=== PATIENT | female | born 1930 | race Caucasian/White ===

== ENCOUNTER 2019-07-09 09:18 | Inpatient (IN) ==
--- NOTE | 2019-07-09 10:16 | EKG Report ---
Test Performed on : 07/09/2019 10:16:33 AM Test Reason : SOB Blood Pressure : / mmHG Vent. Rate : 051 BPM Atrial Rate : 051 BPM P-R Int : 142 ms QRS Dur : 072 ms QT Int : 438 ms P-R-T Axes : 003 014 050 degrees QTc Int : 403 ms Sinus bradycardia. with marked sinus arrhythmia. Low voltage QRS Nonspecific T wave abnormality Abnormal ECG No previous ECGs available Unconfirmed Result
[2019-07-09 10:25] LABS: BASO# 0.02 X1000 (0.0-0.2); BASO% 0.1 % (0.0-0.8); HEMATOCRIT 39.9 % (37.0-47.0); IMM GRAN# 0.11 X1000 (0.0-0.04); IMM GRAN% 0.8 % (0.0-0.5); LYMPH% 7.4 % (20.5-51.1); MCH 31.1 PG (27-31); MCHC 32.6 g/dL (33-37); MCV 95.5 FL (81-99); MONO# 1.37 X1000 (0.11-0.59); MONO% 10.2 % (1.7-9.3); MPV 10.4 FL (7.4-10.4); NEUT# 10.96 X1000 (1.4-6.5); NEUT% 81.5 % (42.2-75.2); PLT 245 X1000 (130-400); RBC 4.18 XMIL (4.2-5.4); RDW 13.1 % (11.5-14.5); WBC 13.46 X1000 (4.8-10.8)
[2019-07-09 10:44] LABS: ALB/GLOB RATIO 1.2; ALBUMIN 3.7 g/dL (3.5-5.0); CALCIUM 9.9 mg/dL (8.8-10.2); CREATININE 1.3 mg/dL (0.5-0.9); POTASSIUM 4.3 mmol/L (3.5-5.1); TOTAL BILIRUBIN 0.31 mg/dL (0.20-1.00); TOTAL PROTEIN 6.9 g/dL (6.3-8.3)
--- NOTE | 2019-07-09 11:19 | Diag Imaging Result Doc PS360 ---
EXAM: XRAY PELVIS W/HIP 2-3VW LT 07/09/2019 HISTORY: fall TECHNIQUE: AP pelvis and left hip three views COMMENT: There is generalized osteopenia. There is an apparent fracture of the inferior pubic ramus on the left of uncertain age. There are no previous studies available for comparison. The hip joint spaces are well-maintained. There are atherosclerotic calcifications in the common femoral arteries. IMPRESSION: Fracture of the left inferior pubic ramus of uncertain age. Electronically signed by Baudilio Sarabia 07/09/2019 11:17 AM
--- NOTE | 2019-07-09 11:20 | Diag Imaging Result Doc PS360 ---
EXAM: FEMUR 1 VIEW LEFT 07/09/2019 HISTORY: fall TECHNIQUE: Left femur one view COMMENT: There is no evidence of fracture or dislocation periosteal reaction or erosion. There are calcifications in the superficial femoral and popliteal arteries. IMPRESSION: No acute bony abnormality. Electronically signed by Baudilio Sarabia 07/09/2019 11:17 AM
--- NOTE | 2019-07-09 11:21 | Diag Imaging Result Doc PS360 ---
CHEST-2 VIEWS - 07/09/2019 INDICATION: SOB COMPARISON: 05/05/2015 FINDINGS: There are no infiltrates in the lungs. Heart size is normal. There is a severe compression deformity in the lower thoracic spine which was not present in 2014. This is at about T10. There is 80% loss of height. IMPRESSION: Age-indeterminate thoracic spine compression fracture. Electronically signed by Graham Thornton 07/09/2019 11:19 AM
--- NOTE | 2019-07-09 12:19 | PROVIDER DOCUMENTATION ---
This chart was entered by Silverio Luna Scribe, acting as scribe for Jalil Bell CRNP. HPI-Musculoskeletal Pain/Inj - GENERAL Chief Complaint: Hip Pain Stated Complaint: FALL/LEFT HIP PAIN Time Seen by Provider: 07/09/19 09:45 Source: patient, family, EMS - HX OF PRESENT ILLNESS-MUSKULOSKELTAL Nature of Presenting Problem: 89 yof presents to the ed v/a ems after a fall [employer]. pt was walking to the mail box, fell and was ambulatory w/ help from fire dep. to walk back inside home. ems states pt then started to c/o Lt hip pain. pt states SOB but " recently had cold and treating w/ medications." 02 sats 89-90 % on room air ,daughter states pt " suppose to be on oxyg at home but doesn't use it." Quality of Pain: reports: aching Severity in ED: mild Onset/Duration: just prior to arrival Timing: still present Modifying Factors: improves with: nothing Any recent injury?: No Locality of Occurance: Home Similar Symptoms Previously?: No Recently seen or treated by another doctor?: No - FALL INJURY Location of Pain/Injury: reports: pelvis (Lt hip) Pain Radiation: reports: no radiation Reason for Fall: reports: tripped Symptoms prior to fall:: reports: none Loss of Consciousness: no loss of consciousness Injury Associated Symptoms: reports: shortness of breath. denies: back/neck pain, chest pain, nausea, sensory/motor loss, unable to bear weight, vomiting - HIP/PELVIS PAIN/INJURY Hip Pain Location: reports: hip (L) Pain Radiation: reports: no radiation Context / Method of Injury: reports: fall Associated Symptoms: reports: denies symptoms Review of Systems - Adult - REVIEW OF SYSTEMS - ADULT Constitutional: denies: chills, fever Eyes: reports: no symptoms reported Ears, Nose, Mouth & Throat: reports: no symptoms reported Cardiovascular: reports: no symptoms reported Respiratory: reports: see HPI, shortness of breath. denies: cough, wheezing Gastrointestinal: denies: abdominal pain, constipation, diarrhea, nausea, vomiting Genitourinary: reports: no symptoms reported Musculoskeletal: reports: see HPI. denies: back pain, neck pain Integumentary: reports: no symptoms reported Neurological: reports: no symptoms reported Psychiatric: reports: no symptoms reported Endocrine: reports: no symptoms reported Hematologic/Lymphatic: reports: no symptoms reported Allergic/Immunologic: reports: no symptoms reported All Other Systems: Reviewed and Negative Past History - Adult - PAST MEDICAL HISTORY-ADULT Review of Records: reports: Old Records Reviewed, Nursing Assessment Review, Medications Reviewed, Social history reviewed & non-contributory. Major Childhood Illnesses: reports: denies history Cardiovascular: reports: HTN, hyperlipidemia Respiratory: reports: denies history Gastrointestinal: reports: denies history Obstetrical/Gynecological: reports: denies history Genitourinary: reports: denies history Musculoskeletal: reports: denies history Neurological: reports: other (brain aneurysm) Psychiatric: reports: denies history Endocrine/Immune: reports: denies history Other Conditions: reports: denies history - PRIOR SURGERIES/PROCEDURES Surgical/Procedure History: reports: hysterectomy, BTL, tonsillectomy - IMMUNIZATION STATUS Childhood Immunizations: See Nurse Assessment Flu Vaccine: See Nurse Assessment - FAMILY HISTORY Family History: reviewed, not pertinent - SOCIAL HISTORY Smoking: quit greater than 1 year, cigarettes Substance Use: denies Physical Exam-Injury Related - Physical Exam-Injury Related Initial Vital Signs Reviewed: Yes General Appearance: appears well, alert, mild distress Respiratory: chest non-tender, lungs clear, normal breath sounds Cardiovascular: normal peripheral pulses, regular rate, rhythm Extremity: normal range of motion, normal inspection Psych/Mental Status: normal mood/affect, normal thought content, normal thought process, oriented x 3 - Glascow Coma Score Best Eye Response (Pedro): (4) open spontaneously Best Verbal Response (Pedro): (5) oriented Best Motor Response (Pedro): (6) obeys commands Ronda Total: 15 Progress - PLAN OF CARE/RESULTS Progress/Plan/Lab Results: Vital Signs - 8 hr 07/09/19 09:25 07/09/19 09:30 07/09/19 09:37 Temperature 98.1 F Pulse Rate 66 58 L 68 Respiratory Rate 18 20 20 Blood Pressure 112/61 100/60 O2 Sat by Pulse Oximetry 94 L 91 L 92 L 07/09/19 09:39 07/09/19 09:45 07/09/19 09:48 Temperature Pulse Rate 61 58 L 60 Respiratory Rate 27 H 22 21 Blood Pressure 112/61 100/60 O2 Sat by Pulse Oximetry 90 L 90 L 91 L 07/09/19 10:00 07/09/19 10:02 07/09/19 10:15 Temperature Pulse Rate 76 55 L 57 L Respiratory Rate 27 H 22 28 H Blood Pressure 103/61 O2 Sat by Pulse Oximetry 92 L 94 L 96 07/09/19 10:17 Temperature Pulse Rate 60 Respiratory Rate 15 Blood Pressure 114/59 O2 Sat by Pulse Oximetry 95 Laboratory Results - last 24 hr 07/09/19 07/09/19 10:06 10:06 WBC 13.46 H RBC 4.18 L Hgb 13.0 Hct 39.9 MCV 95.5 MCH 31.1 H MCHC 32.6 L RDW Std Deviation 13.1 Plt Count 245 MPV 10.4 Immature Gran % (Auto) 0.8 H Neut % (Auto) 81.5 H Lymph % (Auto) 7.4 L [place] % (Auto) 10.2 H Eos % (Auto) 0.0 Baso % (Auto) 0.1 Immature Gran # (Auto) 0.11 H Neut # (Auto) 10.96 H Lymph # (Auto) 1.00 L [place] # (Auto) 1.37 H Eos # (Auto) 0.00 Baso # (Auto) 0.02 Sodium 133 L Potassium 4.3 Chloride 96 L Carbon Dioxide 25 Anion Gap 12 BUN 32 H Creatinine 1.3 H Estimated GFR/1.73 m2 39 BUN/Creatinine Ratio 25 Glucose 94 Calculated Osmolality 273 Calcium 9.9 Total Bilirubin 0.31 AST 13 ALT 11 Alkaline Phosphatase 73 Total Protein 6.9 Albumin 3.7 Globulin 3.2 Albumin/Globulin Ratio 1.2 Orders Category Date Time Status Nursing- Obtain EKG ONCE Care 07/09/19 09:58 Active CHEST-2 VIEWS [RAD] Stat Exams 07/09/19 09:57 Completed FEMUR 1 VIEW LEFT [RAD] Stat Exams 07/09/19 09:57 Completed XRAY PELVIS W/HIP 2-3VW LT [RAD] Stat Exams 07/09/19 09:57 Completed CBC WITH ELECTRONIC DIFF [HEME] Stat Lab 07/09/19 10:06 Completed COMPREHENSIVE METABOLIC PANEL [CHEM] Stat Lab 07/09/19 10:06 Completed UA NIMS W/REFLEX CULT [URINALYSIS] Stat Lab 07/09/19 12:10 Uncollected EKG [EKG] Stat Ther 07/09/19 09:58 Draft Result Diagrams: 07/09/19 10:06 07/09/19 10:06 - EKG 1 Time of EKG reading by physician:: 10:16 EKG Read and Signed by:: Dom Koenig EKG Interpretation (*Must complete 3 of following elements*): Abnormal Rate: 51 Rhythm: sinus bradycardia with marked sinus arrhythmia [place]: normal QRS: other (low voltage QRS) MT Interval: normal ST Wave: normal Comments: nonspecific T wave abnormality - XRAY 1 XRAY Study: Chest Impression: Abnormal (FINDINGS: There are no infiltrates in the lungs. Heart size is normal. There is a severe compression deformity in the lower thoracic spine which was not present in 2015. This is at about T10. There is 80% loss of height. IMPRESSION: Age-indeterminate thoracic spine compression fracture.), See EMR Report 2 XRAY Study: Pelvis, Hip Impression: Abnormal (COMMENT: There is generalized osteopenia. There is an apparent fracture of the inferior pubic ramus on the left of uncertain age. There are no previous studies available for comparison. The hip joint spaces are well-maintained. There are atherosclerotic calcifications in the common femoral arteries. IMPRESSION: Fracture of the left inferior pubic ramus of uncertain age.), See EMR Report 3 XRAY Study: Femur Impression: Normal (COMMENT: There is no evidence of fracture or dislocation periosteal reaction or erosion. There are calcifications in the superficial femoral and popliteal arteries. IMPRESSION: No acute bony abnormality.), See EMR Report - CONSULTS/PCP/HOSPITALIST Notification #1 *Consult/PCP/Hospitalist*: CAROLYNE Burnham for Dr Oliva Time Discussed: 12:14 Reason/Comments: Pubic Ramus Fracture, T10 fracture, ARF, COPD exacerbation Consult Disposition: Admit #2 Consult: Dr White Time Discussed: 12:16 Reason/Comments: ramus fracture, compression fracture Departure - Departure Date of Disposition Decision: 07/09/19 Time of Disposition Decision: 12:17 DIAGNOSIS: COPD exacerbation Pubic ramus fracture Qualifiers: Encounter type: initial encounter Compression fracture of T10 vertebra Qualifiers: Encounter type: initial encounter Qualified Code(s): S22.070A - Wedge compression fracture of T9-T10 vertebra, initial encounter for closed fracture Fall Qualifiers: Encounter type: initial encounter Qualified Code(s): W19.XXXA - Unspecified f all, initial encounter Acute renal failure (ARF) Qualifiers: Acute renal failure type: unspecified Qualified Code(s): N17.9 - Acute kidney failure, unspecified Disposition: HOME 01 Certified Medical Emergency: Emergent Condition: Critical Additional Instructions: ED Follow Up Instructions: You have been treated by a care provider in the Emergency Department. These instructions are being provided to you so you can have an understanding of how to care for yourself upon discharge. Upon discharge from the Emergency Department, you are responsible for making arrangements for follow-up care by a physician of your choice. Take all prescribed medications as directed. Return to the Emergency Department immediately for any new or worsening symptoms. You may call the Physician Referral phone number at [phone] to obtain a list of Physicians who are taking new patients. Referrals and Follow-Ups: Radha Matthew MD [Primary Care Provider] - - Critical Care Note This patient required my direct & personal management of CC.: No Attestation - Physician/ LANEY Attestation Patient care was provided by Advanced Practice Provider:: Yes Advanced Practice Provider:: Jalil Bell Advanced Practice Provider documentation review:: The Mid-level provider documentation, treatment plan and medical decision making was reviewed by the physician who agrees with all treatment and medical decision making by the MLP. The physician spent face to face time with patient:: No Advanced Practice Provider documentation review:: Supervising physician onsite and consulted in the evaluation and care of this patient. The physician did not have a face to face encounter with the patient. This chart was documented by the indicated scribe, (Silverio Luna Scribe) and accurately reflects the services I performed and decisions made by , Jalil Bell CRNP, as attested by the provider's signature.
[2019-07-09] MEDS ORDERED: MICRO-K PO PRN (14:14)
[2019-07-09] MEDS ORDERED: ZOFRAN IV PRN (14:14)
[2019-07-09] MEDS ORDERED: TYLENOL PO PRN (14:14)
[2019-07-09] MEDS ORDERED: LASIX PO PRN (14:14)
[2019-07-09] MEDS: MAG-OX PO SCH ×2 (15:58→17:16)
--- NOTE | 2019-07-09 16:28 | HISTORY AND PHYSICAL ---
PRIMARY CARE PHYSICIAN: Dr. Matthew. CHIEF COMPLAINT: Of a fall in her bedroom this morning while putting on her robe to go out to the mailbox. HISTORY OF PRESENTING ILLNESS: This is an 89-year-old female who presents to [facility] via EMS after she sustained a fall in her bedroom this morning while putting her robe bone in preparation to go outside to her mailbox. States she started having some left hip pain so she was brought to the emergency room. Her workup showed a left hip pelvis x-ray with a fracture of the left inferior pubic ramus of uncertain age. We did a left femur 1 view that showed no acute bony abnormality. Chest x-ray showed a thoracic spine compression fracture at T10 of a age indeterminate, but the patient states she has had that for several years and was aware. Her laboratory data showed a white blood cell count of 13.46. Her creatinine is 1.3, but she states she also has some underlying chronic kidney disease. We do not have any previous labs to compare to, but it sounds as if this is probably around her baseline and so she will be admitted with orthopedic consultation for further evaluation and treatment. PAST MEDICAL HISTORY: Hypertension, hyperlipidemia, brain aneurysm, and chronic kidney disease. PAST SURGICAL HISTORY: Of a hysterectomy, bilateral tubal ligation and a tonsillectomy. FAMILY HISTORY: Reviewed and noncontributory. SOCIAL HISTORY: She currently lives alone. Denies any tobacco, alcohol or illicit drug use. ALLERGIES: To meperidine. HOME MEDICATIONS: She takes carvedilol 25 mg p.o. b.i.d., doxycycline 100 mg p.o. b.i.d., Lasix 20 mg p.o. p.r.n., losartan/hydrochlorothiazide 100/25 1 p.o. daily, lovastatin 40 mg p.o. at bedtime, magnesium oxide 200 mg p.o. t.i.d., potassium 10 mEq p.o. p.r.n., prednisone 20 mg p.o. daily, spironolactone 25 mg p.o. daily an Stiolto respite inhaler 2 puff inhalation daily. LABORATORY DATA: Showed a white blood cell count of 13.46, hemoglobin 13, hematocrit 39.9, platelets 245,000. Sodium 133, potassium 4.3, chloride 96, CO2 25, BUN of 32, creatinine 1.3, glucose 94. A chest x-ray that showed an age indeterminate thoracic spine compression fracture at about the T-10 with 80% loss of height that has been present for several years according to the patient. Her left femur x-ray showed no acute bony abnormality. Her left hip and pelvic x-ray showed a fracture of the left inferior pubic ramus of uncertain age. EKG showed sinus bradycardia with a marked sinus arrhythmia at 51. REVIEW OF SYSTEMS: She denied any fever, chills, blurred vision, dizziness, chest pain, coughing, shortness of breath. She denied any abdominal pain, constipation, diarrhea, burning or hurting with urination. She does have pain in her left hip area with movement. PHYSICAL EXAMINATION: On arrival she had a temperature of 98.1 degrees, pulse 66, respirations 18, blood pressure 112/61, saturating 94% on room air. GENERAL: This is an 89-year-old female who is sitting up in the bed. Answers questions appropriately. HEENT: Normocephalic, atraumatic. Normal ENT inspection. Oropharynx and nares are clear. EYES: Pupils are equal, round, reactive to light and accommodation. Extraocular movements are intact. NECK: Normal inspection, normal range of motion. LUNGS: Clear to auscultation bilaterally with equal lung expansion and chest wall movement. HEART: With regular rate and rhythm. No murmurs, rubs, or gallops. ABDOMEN: Soft, nontender, nondistended. Bowel sounds are present x4 quadrants. MUSCULOSKELETAL: She had 5/5 strength to bilateral upper extremities and right lower extremities, unable to assess the left at this time. NEUROLOGICAL: Cranial nerves 2-12 appear grossly intact. ASSESSMENT: 1. Fall. 2. Left inferior pubic ramus fracture. 3. Mild leukocytosis but may be secondary to chronic steroid use. PLAN: She will be admitted, placed on telemetry, O2 per protocol. We will consult physical therapy, consult Orthopedics. Continue home medications as previously identified. We will give her morphine 2 mg IV q.3 hours p.r.n., Zofran 4 mg IV q.4 hours p.r.n. Further orders will be after seen by attending and by independent crop consultant. Dictated by CAROLYNE Orr for Larry Hopson MD cc: CAROLYNE rOr MD
[2019-07-09 17:39] LABS: URINE SOURCE CATH
[2019-07-09 17:47] LABS: BILIRUBIN URINE NEGATIVE (NEGATIVE); BLOOD URINE NEGATIVE (NEGATIVE); COLOR YELLOW; GLUCOSE URINE NEGATIVE (NEGATIVE); KETONE URINE NEGATIVE (NEGATIVE); LEUKOCYTES URINE NEGATIVE (NEGATIVE); NITRITE URINE NEGATIVE (NEGATIVE); PROTEIN URINE TRACE mg/dL (NEGATIVE); SP GRAVITY URINE 1.018; TURBIDITY URINE CLEAR (CLEAR); UROBILINOGEN URINE NORMAL (NORMAL)
[2019-07-09 17:49] LABS: UR EPITHELIAL CELLS <10 /HPF (<10); URINE BACTERIA NEGATIVE /HPF; URINE RBC <10 /HPF (<10); URINE WBC <10 /HPF (<10)
--- NOTE | 2019-07-09 19:41 | HISTORY AND PHYSICAL ---
ADDENDUM: The patient seen and examined by me [id number]. All the laboratory, vital signs and images were reviewed. The patient presented to the emergency department after a fall via EMS. Apparently she was walking to the mailbox and she fell. She tried to turn around and her leg did not respond, and she fell and hit her left hip area. She does have pain at the level of the left hip. Hip x-ray showed the possibility of a left inferior pubic ramus fracture. On my physical exam, this patient's pain is not located in that area and it is really hard for me to say that there is a fracture there also, and if there is one probably it is old. At any rate, she is really in pain and she is not able to ambulate. She has been placed and she will be hospitalized with pain treatment. Orthopedic Surgery will evaluate this patient. She does have some leukocytosis, but this is likely reactive. She does not have any signs of infection and she is not complaining of any kind of dysuria. Chest x-ray is clear but probably there is an age-indeterminate thoracic spine compression fracture. She is not complaining of back pain at this moment either. I agree with the rest of the nurse practitioner's assessment and plan. cc: Larry Hopson MD
[2019-07-09] MEDS: COREG PO SCH (20:53)
[2019-07-09] MEDS: PREDNISONE PO SCH (20:53)
[2019-07-09] MEDS: MEVACOR PO SCH (20:53)
--- NOTE | 2019-07-09 21:28 | ORTHOPAEDICS CONSULTATION ---
DATE: 07/09/2019 CHIEF COMPLAINT: Left hip pain. HISTORY OF PRESENT ILLNESS: This 89-year-old female was at home today, putting on a robe when she lost her balance and fell. Since then, she had some left hip and groin pain. She presented to the emergency room, was found to have a nondisplaced left pubic rami fracture. She was admitted for pain control and mobilization. I was consulted for orthopedic evaluation. She denies any other complaints. PAST MEDICAL HISTORY: Significant for history of hypertension and hyperlipidemia as well as her current intake record. CURRENT MEDICATIONS: Are as listed per the hospital chart. She does not report a history of previous hip fracture in the past. She does report a history of possible thoracic compression fracture in the past, which was noted on her chest x-ray. REVIEW OF SYSTEMS: Relatively unremarkable other than left hip and groin pain. PHYSICAL EXAMINATION: She has some tenderness about the left pubic rami to palpation. Left hip is relatively nontender on passive motion. There is good range of motion. She is motor and sensory intact. IMAGING: X-rays reviewed of the pelvis, the femur and the spine show age-indeterminate T10 fracture. There is an acute left pubic rami fracture, which is nondisplaced. ASSESSMENT: Left pubic rami fracture--stable. PLAN: Patient can be mobilized with a walker, weightbearing to tolerance. She can be dismissed when the pain is controlled and she has regained mobility with a walker. She might require some home therapy, which can be arranged depending on how she does with therapy. I will need to see her back in the office in 3 to 4 weeks for followup x-ray of the pelvis. She can return to see me sooner if needed. Regarding the spine injury, she would need to follow up with 1 of the neurosurgeons to consider further treatment for that on an outpatient basis. We will be available as needed. cc: Wilfredo Arauz MD
[2019-07-10 05:25] LABS: IMM GRAN# 0.04 X1000 (0.0-0.04); IMM GRAN% 0.3 % (0.0-0.5)
[2019-07-10 05:46] LABS: BASO# 0.01 X1000 (0.0-0.2); BASO% 0.1 % (0.0-0.8); EOS# 0.04 X1000 (0.0-0.7); EOS% 0.3 % (0.0-10.0); HEMOGLOBIN 12.4 g/dL (12.0-16.0); LYMPH% 6.9 % (20.5-51.1); MCH 30.6 PG (27-31); MCHC 31.8 g/dL (33-37); MCV 96.3 FL (81-99); MONO# 0.97 X1000 (0.11-0.59); MONO% 8.4 % (1.7-9.3); MPV 10.3 FL (7.4-10.4); NEUT# 9.75 X1000 (1.4-6.5); PLT 234 X1000 (130-400); RBC 4.05 XMIL (4.2-5.4); RDW 12.9 % (11.5-14.5); WBC 11.61 X1000 (4.8-10.8)
[2019-07-10 06:03] LABS: CALCIUM 9.4 mg/dL (8.8-10.2); CREATININE 1.2 mg/dL (0.5-0.9)
[2019-07-10 07:00] LABS: LYMPHS 9 % (21-51); MONO 6 % (1-9); SEGS 85 % (42-75)
[2019-07-10] MEDS: ALDACTONE PO SCH (08:00)
[2019-07-10] MEDS: HYZAAR 50/12.5 MG PO SCH (08:00)
[2019-07-10] MEDS: MAG-OX PO SCH ×3 (08:00→17:18)
[2019-07-10] MEDS: PREDNISONE PO SCH ×2 (08:01→20:28)
[2019-07-10] MEDS: COREG PO SCH ×2 (08:01→20:28)
[2019-07-10] MEDS: MORPHINE IV PRN ×2 (08:01→13:54)
[2019-07-10] MEDS: NON-FORMULARY BULK MED INH SCH (12:00)
[2019-07-10] MEDS ORDERED: ULTRAM PO PRN (15:02)
--- NOTE | 2019-07-10 15:31 | PROGRESS NOTE ---
DATE: 07/10/2019 SUBJECTIVE: The patient seems to be stable. Physical therapy worked with this patient today and she is not able to walk too much and she is in a lot of pain. They have suggested rehabilitation for this patient and she agreed with that. I already asked Angle Furnaceman to evaluate this patient for rehab. OBJECTIVE: Vital Signs: Temperature 97.6 degrees, pulse 63, respiratory rate 20, blood pressure 128/61, oxygen saturation 95% on 2 L of nasal cannula. HEENT: Head normocephalic, no trauma. PERRLA. Neck: Supple. No JVD. No masses. Central trachea. Chest: Clear to auscultation. No wheezing. No rales. Abdomen: Soft, nontender, nondistended. No hepatosplenomegaly. Extremities: No edema. Left hip pain upon palpation and mobilization. Also, a little bit of pain in her gluteal area on the left side. Neurological: The patient is completely awake, alert, and oriented x3. No focal deficits. LABORATORY: WBC 11.6, hemoglobin 12.4, hematocrit 39, platelets 234,000. Sodium 134, potassium 5, chloride 97, bicarbonate 24, BUN 29, creatinine 1.2, glucose 111, calcium 9.4. ASSESSMENT AND PLAN: 1. Left inferior pubic ramus fracture after a fall, this patient has been evaluated by Orthopedic Surgery Department. They have recommended ambulation with physical therapy and a front wheel walker as tolerated, this patient did not do too good today with physical therapy and I will send this patient to a rehab center, and they agree with that. I will continue to monitor this patient in the hospital and she will be discharged once we have a place for her. 2. Leukocytosis, mild, this patient has been on chronic steroid at home. When I ask her today why she has been on steroids she did not know exactly why, I will try to talk to her daughter. 3. Hypertension stable. Continue with same management. 4. Hyperlipidemia. Continue with lovastatin. cc: Larry Hopson MD
[2019-07-10] MEDS: MEVACOR PO SCH (20:28)
[2019-07-11 05:20] LABS: BASO# 0.01 X1000 (0.0-0.2); BASO% 0.1 % (0.0-0.8); HEMATOCRIT 40.3 % (37.0-47.0); HEMOGLOBIN 12.9 g/dL (12.0-16.0); IMM GRAN# 0.04 X1000 (0.0-0.04); IMM GRAN% 0.5 % (0.0-0.5); LYMPH# 0.89 X1000 (1.2-3.4); LYMPH% 10.3 % (20.5-51.1); MCH 30.8 PG (27-31); MCV 96.2 FL (81-99); MONO# 0.86 X1000 (0.11-0.59); MPV 10.3 FL (7.4-10.4); NEUT# 6.84 X1000 (1.4-6.5); NEUT% 79.1 % (42.2-75.2); PLT 232 X1000 (130-400); RBC 4.19 XMIL (4.2-5.4); WBC 8.64 X1000 (4.8-10.8)
[2019-07-11 06:02] LABS: CALCIUM 9.8 mg/dL (8.8-10.2); CREATININE 1.2 mg/dL (0.5-0.9); POTASSIUM 4.9 mmol/L (3.5-5.1)
[2019-07-11] MEDS: COREG PO SCH ×2 (08:45→20:36)
[2019-07-11] MEDS: HYZAAR 50/12.5 MG PO SCH (08:45)
[2019-07-11] MEDS: MAG-OX PO SCH ×3 (08:46→18:20)
[2019-07-11] MEDS: ALDACTONE PO SCH (08:47)
[2019-07-11] MEDS: PREDNISONE PO SCH ×2 (08:47→20:35)
[2019-07-11] MEDS: MORPHINE IV PRN (14:18)
--- NOTE | 2019-07-11 19:56 | PROGRESS NOTE ---
DATE: 07/11/2019 SUBJECTIVE: Today, Ms. Wen refers to be doing a lot better. She says she has been up with physical therapy earlier on today. Per therapy note, she was able to do 3 feet with front-wheel walker. OBJECTIVE: Ms. Wen is an 89-year-old, elderly female. She is in bed in no distress. Mucosa is pink and moist. Anicteric. Acyanotic.Neck: Supple. vital signs: Blood pressure is 134/75, pulse of 51, respirations 18, temperature is 97.5 degrees. The patient is saturating 97%. Chest: Good air entry bilaterally. There are no crepitations, no rhonchi. Cardiovascular: Regular rate and rhythm. No murmurs. No rubs. No gallops. Gastrointestinal: Abdomen is soft, nontender. Bowel sounds present. Extremities: No pedal edema. Central nervous system: Patient is awake, alert, and oriented. The patient still has a Moura catheter in place. I did not examine her gait. LABORATORY DATA: CBC is completely within normal range. Chemistry is also within normal range, except for creatinine of 1.2 and sodium of 132. CURRENT MEDICATIONS: Have all been reviewed and no changes. ASSESSMENT/PLAN: 1. Left inferior pubic ramus fracture after mechanical fall. The patient has been evaluated by Orthopedics and they recommend conservative management. Physical Therapy is on board. 2. Reactive leukocytosis. Resolved. 3. Hypertension. Controlled. 4. Dyslipidemia. Will continue with lovastatin. cc: Reji Awad MD
[2019-07-11] MEDS: MEVACOR PO SCH (20:36)
[2019-07-12] MEDS: HYZAAR 50/12.5 MG PO SCH (09:11)
[2019-07-12] MEDS: PREDNISONE PO SCH ×2 (09:11→21:14)
[2019-07-12] MEDS: MAG-OX PO SCH ×3 (09:11→16:31)
[2019-07-12] MEDS: ALDACTONE PO SCH (09:12)
[2019-07-12] MEDS: MORPHINE IV PRN (09:14)
[2019-07-12] MEDS: COREG PO SCH ×2 (09:17→21:14)
[2019-07-12] MEDS: NON-FORMULARY BULK MED INH SCH ×2 (09:42→10:49)
[2019-07-12] MEDS: MIRALAX PO SCH (13:15)
[2019-07-12] MEDS ORDERED: D5 1/2 NS + KCL 20 MEQ 1,000 ML IV SCH (13:45)
[2019-07-12] MEDS: NS 1,000 ML IV SCH (14:04)
--- NOTE | 2019-07-12 19:58 | PROGRESS NOTE ---
DATE: 07/12/2019 SUBJECTIVE: This morning Ms. Wen refers to be doing a lot better. She said if she could only get her bowels to move, she would feel much much better. She is has been started on MiraLAX today. OBJECTIVE: Vital signs: Blood pressure is 136/70, pulse 50, respirations 18, temperature 99.0. The patient is saturating 97% on 2 L. General: Ms. Wen is an 89-year-old elderly female. She is in bed in no distress. HEENT: Mucosa is pink and moist. Anicteric. Acyanotic. Neck: Supple. Chest: Good air entry bilaterally. There are no crepitations no rhonchi. Cardiovascular: Regular rate and rhythm. No murmurs, no rubs, no gallops. GI: Abdomen is soft, nontender. Bowel sounds present, but slightly hypoactive. No hepatosplenomegaly. Extremities: No pedal edema. Distal pulses present. CUSTOM CLOTHIER: Patient is awake, alert, oriented. No focal deficit. Genitourinary: Moura catheter is in place. LABORATORY DATA: No laboratory data for today. The patient's urine output was 1725. She is currently negative with a balance of 3235. ASSESSMENT AND PLAN: 1. Left inferior pubic ramus fracture after mechanical fall. The patient has been evaluated by Orthopaedics, and they have recommended conservative management. Physical therapy is on board. 2. Reactive leukocytosis, resolved. 3. Hypertension, controlled. 4. Dyslipidemia. Will continue with the statin. 5. Acute on possibly chronic renal failure. We will continue with IV fluids and recheck on her labs in the morning. Patient continues to make adequate urine output. cc: Reji Awad MD
[2019-07-12] MEDS: MEVACOR PO SCH (21:14)
[2019-07-13] MEDS: NS 1,000 ML IV SCH (02:17)
[2019-07-13 06:20] LABS: HEMATOCRIT 40.4 % (37.0-47.0); HEMOGLOBIN 13.1 g/dL (12.0-16.0); MCH 31.1 PG (27-31); MCHC 32.4 g/dL (33-37); MPV 10.3 FL (7.4-10.4); RBC 4.21 XMIL (4.2-5.4); WBC 9.75 X1000 (4.8-10.8)
[2019-07-13 06:48] LABS: ALBUMIN 3.1 g/dL (3.5-5.0); CALCIUM 9.2 mg/dL (8.8-10.2); CREATININE 0.9 mg/dL (0.5-0.9); PHOSPHORUS 3.4 mg/dL (2.7-4.5); POTASSIUM 5.4 mmol/L (3.5-5.1)
[2019-07-13] MEDS: NON-FORMULARY BULK MED INH SCH (07:59)
[2019-07-13] MEDS: MAG-OX PO SCH ×3 (08:05→15:59)
[2019-07-13] MEDS: HYZAAR 50/12.5 MG PO SCH (08:05)
[2019-07-13] MEDS: PREDNISONE PO SCH ×2 (08:06→21:05)
[2019-07-13] MEDS: ALDACTONE PO SCH (08:06)
[2019-07-13] MEDS: MIRALAX PO SCH ×2 (08:06→21:05)
[2019-07-13] MEDS ORDERED: MIRALAX PO SCH (09:00)
[2019-07-13] MEDS: MORPHINE IV PRN (09:08)
[2019-07-13] MEDS ORDERED: DULCOLAX PR PRN (10:15)
--- NOTE | 2019-07-13 16:00 | PROGRESS NOTE ---
DATE: 07/13/2019 INTERVAL HISTORY: No acute events overnight. No new complaints. Some pain with movement but really just with the pelvis. Does not really have any significant back pain with her compression fracture. REVIEW OF SYSTEMS: Twelve point review of systems negative except as per interval history. LABS: WBC 9.75, hemoglobin 13.1, hematocrit 40.1, platelets 243,000. Sodium 133, potassium 5.4, repeat potassium 5.2, BUN 36, creatinine 1.9, albumin 3.1. PHYSICAL EXAMINATION: Vital Signs: Temperature maximum 99.0, pulse 76, respirations 15, blood pressure 110/63, O2 saturation 95% on 2L via nasal cannula. General: No acute distress. HEENT: Normocephalic, atraumatic. Moist mucous membranes. Cardiovascular: Regular rate and rhythm. No murmurs noted. Pulmonary: Clear to auscultation bilaterally. No wheezing noted. Abdomen: Soft, nontender, nondistended. Bowel sounds positive. Extremities: Peripheral pulses intact. No clubbing or cyanosis. Neurologic: Cranial nerves grossly intact. No focal deficits identified. Psychiatric: Normal mood and affect. Awake, alert, and oriented x3. : Moura remains in place. ASSESSMENT AND PLAN: 1. Left inferior pubic rami fracture after fall. Conservative management recommended by Orthopedics. Physical Therapy seeing the patient. Recommend evaluation for possible treatment of osteoporosis by her primary care provider after discharge. Likely discharge to rehab tomorrow. 2. Leukocytosis, likely reactive, resolved. 3. Acute kidney injury on possible chronic kidney disease stage 3. Essentially, likely back to baseline at this point. Initial creatinine 1.3 down to 0.9 today. Still technically chronic kidney disease stage 3 and in this may be baseline, but will see where she ends up. 4. Hyperkalemia, mild. Likely due to lisinopril, spironolactone and daily potassium pill. Discontinued potassium for this morning and recheck still slightly high, although improved. We will go ahead and hold spironolactone as well and monitor. 5. Hyponatremia. Minimal. Stable. No need for acute intervention at this time. 6. Bradycardia, likely due to high-dose Coreg. We will go ahead and decrease that dose some. The patient's blood pressure has been low normal for the most part, so she certainly does not need as much blood pressure medicine as she is getting currently. 7. Hypertension. Continue hydrochlorothiazide and losartan, holding Lasix and will hold spironolactone tomorrow. We did not plan on continuing both hydrochlorothiazide and Lasix on discharge. 8. Hyperlipidemia, continue statin. 9. T10 compression fracture. Patient asymptomatic. No need for intervention at this time.
[2019-07-13] MEDS: COREG PO SCH (21:04)
[2019-07-13] MEDS: MEVACOR PO SCH (21:04)
[2019-07-14] MEDS: NON-FORMULARY BULK MED INH SCH (08:55)
[2019-07-14] MEDS: COREG PO SCH (08:58)
[2019-07-14] MEDS: PREDNISONE PO SCH (08:58)
[2019-07-14] MEDS: HYZAAR 50/12.5 MG PO SCH (08:58)
[2019-07-14] MEDS: MIRALAX PO SCH (08:58)
[2019-07-14] MEDS: MAG-OX PO SCH ×2 (11:34→13:50)
[2019-07-14 11:53] LABS: CALCIUM 9.2 mg/dL (8.8-10.2); POTASSIUM 4.9 mmol/L (3.5-5.1)
[2019-07-14 12:32] VITALS: BP 124/56
--- NOTE | 2019-07-14 12:51 | DISCHARGE SUMMARY ---
ADMISSION DATE: 07/09/2019 DISCHARGE DATE: 07/14/2019 CONSULT: Orthopedic surgery, Dr. Arauz. PERTINENT STUDIES: Chest x-ray with age-indeterminate T10 spinal compression fracture. Femur x- ray: Normal. Hip and pelvis x-ray with fracture of the left inferior pubic ramus and generalized osteopenia. Initial creatinine 1.3 discharge creatinine 1.0. Potassium trended up as high as 5.4, potassium 4.9 on discharge. DISCHARGE DIAGNOSES: 1. Left pubic ramus fracture. 2. T10 compression fracture. 3. Hypertension. 4. Hyperlipidemia. 5. Acute kidney injury on likely chronic kidney disease III. 6. Hyperkalemia. 7. Bradycardia. 8. Likely osteoporosis. HOSPITAL COURSE: The patient presented initially with a ground level fall in her bedroom. She was having some hip pain, so came to the ER. Initial workup showed left pubic rami fracture and T10 compression fracture. The T10 fracture was suspected to be old as it was not really causing the patient any discomfort. She had a mildly elevated creatinine and white count, both of which resolved with fluids. No infection was identified. She did have pretty consistent bradycardia and borderline low blood pressure even after the fluids, so her Coreg was decreased. Her heart rate got a little better, but remained low, generally in the high 40s to low 50s, occasionally up as high as the low 70s, so her Coreg was again decreased. After her creatinine had improved, she developed some hyperkalemia, thought to be related to her home lisinopril, spironolactone and oral potassium, which had been restarted at that point. The potassium and spironolactone were discontinued with resolution of her hyperkalemia. These were left off at discharge. Based on her home med list, it appeared the patient was taking hydrochlorothiazide, Lasix and spironolactone. On discharge, we kept the hydrochlorothiazide, but discontinued Lasix and spironolactone as it was felt to be likely contributing to her mild acute kidney injury and dehydration on admission. It may have been contributing to her fall. The patient had some ongoing mild weakness and modest difficulty with ambulation, so she was discharged to rehab for gait training and physical therapy. DISCHARGE VITAL SIGNS: Temperature 98.1 degrees, pulse 53, respirations 12, blood pressure 122/55, O2 saturation 100% on 2 L by nasal cannula. DISCHARGE DIET: Regular. DISCHARGE MEDICATIONS: 1. Lovastatin 40 mg p.o. at bedtime 2. Losartan/hydrochlorothiazide 100/25 one daily. 3. Magnesium oxide 400 p.o. t.i.d. 4. Prednisone 20 mg p.o. b.i.d. 5. Stiolto Respimat daily. 6. Coreg 6.25 b.i.d. 7. Dulcolax 10 mg suppository daily as needed. 8. MiraLAX 17 g p.o. b.i.d. as needed. 9. Tylenol 650 mg p.o. every 6 hours as needed for pain. 10. Tramadol 50 mg p.o. every 6 hours as needed for pain. PLAN: The patient discharging up to rehab for strength training. Recommend discussion with PCP about possibly starting osteoporosis medication given osteopenia identified on x-ray and 2 low impact fractures. Recommend discussing with PCP discontinuation of her home prednisone. Had a tough time finding out exactly what that was for but was reluctant to discontinue it abruptly as she appeared to have been on it for quite some time. Will likely need a quite slow taper, but it could definitely be contributing to her osteoporosis.
[2019-07-14] MEDS ORDERED: COREG PO SCH (21:00)
== END 2019-07-14 17:06 | DRG 536 ==
LOC: SUPCPDRO → ED 09:18 → SUATTDRO 13:51 → 1N 13:51
PROVIDERS: ATTEND Internal Medicine